=== PATIENT | female | born 1955 | race Two or more races ===

== ENCOUNTER 2016-08-08 13:54 | Emergency (ER) | payer OTHER ==
[~2016-08-08] VITALS: Ht 167.6 cm; Wt 81.6 kg
[2016-08-08] MEDS ORDERED: IBUPROFEN 400 MG TABLET ONE (14:05)
[2016-08-08] MEDS ORDERED: IBUPROFEN 400 MG TABLET PO ONE (14:30)
[2016-08-08 14:35] VITALS: BP 135/88
== END 2016-08-08 14:39 | disposition home or self-care (01) ==
LOC: ER 13:56
DX: S13.4XXA Sprain of ligaments of cervical spine, initial encounter (principal); S39.012A Strain of muscle, fascia and tendon of lower back, initial encounter; V49.60XA Unspecified car occupant injured in collision with unspecified motor vehicles in traffic accident, initial encounter; Y93.89 Activity, other specified; Y92.413 State road as the place of occurrence of the external cause; Y99.8 Other external cause status
CPT/HCPCS: 99283; A4606; Z7610